=== PATIENT | female | born 2000 ===

== ENCOUNTER 2020-10-17 17:40 | Inpatient (IN) | payer SELFPAY ==
[2020-10-17] MEDS: Lactated Ringers 1,000 ML IV SCH (18:45)
[2020-10-17] MEDS ORDERED: Misoprostol 200 MCG Tab PO PRN (19:02)
[2020-10-17] MEDS ORDERED: Sodium Chloride 0.9% 10 ML SDV IV PRN (19:02)
[2020-10-17] MEDS ORDERED: Tranexamic Acid 1,000 MG in Sodium Chloride 0.9% 100 ML IV PRN (19:02)
[2020-10-17] MEDS ORDERED: Terbutaline 1 MG/ML SDV SUBCUT PRN (19:02)
[2020-10-17] MEDS ORDERED: Ondansetron 4 MG/2 ML SDV IVPUSH PRN (19:02)
[2020-10-17] MEDS ORDERED: Lidocaine 1% 50 ML MDV INJECT PRN (19:02)
[2020-10-17] MEDS ORDERED: Water For Irrigation,Sterile 1,000 ML Container IRR PRN (19:02)
[2020-10-17] MEDS ORDERED: Nalbuphine 10 MG/1 ML Vial IVPUSH PRN (19:02)
[2020-10-17] MEDS ORDERED: Sodium Chloride 0.9% 10 ML Syringe FLUSH PRN (19:02)
[2020-10-17] MEDS ORDERED: Methylergonovine 0.2 MG/1 ML Amp IM PRN (19:02)
[2020-10-17] MEDS ORDERED: Carboprost Tromethamine 250 MCG/1 ML Amp IM PRN (19:02)
[2020-10-17] MEDS ORDERED: Oxytocin/0.9 % Sodium Chloride 30 UNIT/500 ML BAG IV SCH ×2 (19:15)
[2020-10-17] MEDS ORDERED: Ampicillin 2 GM in Sodium Chloride 0.9% 100 ML IV ONE (19:30)
[2020-10-17] MEDS ORDERED: Misoprostol 25 MCG (1/4 of 100 MCG) Tab VAG PRN (20:00)
[2020-10-17] MEDS ORDERED: Ampicillin 1 GM Vial ONE (23:45)
[2020-10-17] MEDS ORDERED: Sodium Chloride 0.9% 50 ML ONE (23:45)
[2020-10-17] MEDS: Ampicillin 1 GM in Sodium Chloride 0.9% 50 ML IV SCH (23:57)
[2020-10-18] MEDS ORDERED: Misoprostol 25 MCG (1/4 of 100 MCG) Tab VAG PRN
[2020-10-18] MEDS: Butorphanol 1 MG/ML SDV IVPUSH PRN ×3 (02:55→05:37)
[2020-10-18] MEDS: Sodium Chloride 0.9% 2.5 ML Syringe FLUSH PRN ×2 (03:02→05:38)
[2020-10-18] MEDS ORDERED: Sodium Chloride 0.9% 50 ML ONE (03:42)
[2020-10-18] MEDS ORDERED: Ampicillin 1 GM Vial ONE (03:42)
[2020-10-18] MEDS: Ampicillin 1 GM in Sodium Chloride 0.9% 50 ML IV SCH ×3 (04:02→12:21)
[2020-10-18] MEDS ORDERED: fentaNYL 100 MCG/2 ML SDV ONE (06:52)
[2020-10-18] MEDS ORDERED: Ropivacaine HCl/PF 100 ML ONE (06:52)
--- NOTE | 2020-10-18 07:14 | PCM.PREANE ---
Preanesthetic Assessment - Anesthesia/Transfusion/Family Hx Anesthesia History: No Prior Anesthesia Family History of Anesthesia Reaction: No - Physical Assessment NPO Status Date: 10/18/20 NPO Status Time: 00:05 Height: 1.68 m Weight: 98.883 kg ASA Class: 2 - Lab Values: Laboratory Last Values WBC 8.75 K/uL (4.0-11.0) 10/17/20 19:30 RBC 3.99 M/uL (4.30-5.90) L 10/17/20 19:30 Hgb 10.5 g/dL (12.0-16.0) L 10/17/20 19:30 Hct 32.6 % (36.0-46.0) L 10/17/20 19:30 MCV 81.7 fL (80.0-98.0) 10/17/20 19:30 MCH 26.3 pg (27.0-32.0) L 10/17/20 19:30 MCHC 32.2 g/dL (31.0-37.0) 10/17/20 19:30 RDW Std Deviation 42.5 fl (28.0-62.0) 10/17/20 19:30 RDW Coeff of Renny 14 % (11.0-15.0) 10/17/20 19:30 Plt Count 288 K/uL (150-400) 10/17/20 19:30 MPV 10.70 fL (7.40-12.00) 10/17/20 19:30 Nucleated RBC % 0.3 /100WBC 10/17/20 19:30 Nucleated RBCs # 0 K/uL 10/17/20 19:30 Blood Type O NEGATIVE 10/17/20 18:35 Antibody Screen NEGATIVE 10/17/20 18:35 - Allergies Allergies/Adverse Reactions: Allergies Allergy/AdvReac Type Severity Reaction Status Date / Time No Known Allergies Allergy Verified 10/17/20 19:27 - Acknowledgements Anesthesia Type Planned: Epidural Pt an Appropriate Candidate for the Planned Anesthesia: Yes Alternatives and Risks of Anesthesia Discussed w Pt/Guardian: Yes Pt/Guardian Understands and Agrees with Anesthesia Plan: Yes PreAnesthesia Questionnaire - HOME MEDS Home Medications: Home Meds Vits #93/Iron Fum/FA [ Formula Tablet] 1 each PO DAILY 10/18/20 [History] - CURRENT (IN HOUSE) MEDS Current Meds: Current Medications Butorphanol Tartrate (Stadol) 1 mg IVPUSH Q1H PRN PRN Reason: Pain Last Admin: 10/18/20 05:37 Dose: 1 mg Documented by: Carboprost Tromethamine (Hemabate Ds) 250 mcg IM ASDIRECTED PRN PRN Reason: Post Hemorrhage Oxytocin/Sodium Chloride (Oxytocin 30 Unit/500 Ml-Ns) 30 unit in 500 mls @ 999 mls/hr IV TITRATE [facility] Tranexamic Acid 1,000 mg/ (Sodium Chloride) 110 mls @ 660 mls/hr IV ONETIME PRN PRN Reason: Bleeding Oxytocin/Sodium Chloride (Oxytocin 30 Unit/500 Ml-Ns) 30 unit in 500 mls @ 2 mls/hr IV TITRATE [facility]; Protocol Last Titration: 10/18/20 05:24 Dose: 4 munits/min, 4 mls/hr Documented by: Lactated Ringer's (Ringers, Lactated) 1,000 mls @ 150 mls/hr IV ASDIRECTED [facility] Last Admin: 10/17/20 18:45 Dose: 150 mls/hr Documented by: Ampicillin Sodium 1 gm/ Sodium (Chloride) 50 mls @ 100 mls/hr IV Q4H [facility] Lidocaine HCl (Xylocaine 1%) 50 ml INJECT ONETIME PRN PRN Reason: Laceration repair Methylergonovine Maleate (Methergine) 0.2 mg IM ASDIRECTED PRN PRN Reason: Post Hemorrhage Misoprostol (Cytotec) 200 mcg PO ONETIME PRN PRN Reason: Post Hemorrhage Misoprostol (Cytotec) 25 mcg VAG ONETIME PRN PRN Reason: Cervical Ripening Last Admin: 10/17/20 20:12 Dose: 25 mcg Documented by: Misoprostol (Cytotec) 25 mcg VAG Q4H PRN PRN Reason: Cervical Ripening Last Admin: 10/18/20 00:00 Dose: 25 mcg Documented by: Nalbuphine HCl (Nubain) 10 mg IVPUSH Q1H PRN PRN Reason: Pain (severe 7-10) Ondansetron HCl (Zofran) 4 mg IVPUSH Q6H PRN PRN Reason: Nausea/Vomiting Sodium Chloride (Saline Flush) 10 ml FLUSH ASDIRECTED PRN PRN Reason: Keep Vein Open Sodium Chloride (Saline Flush) 2.5 ml FLUSH ASDIRECTED PRN PRN Reason: Keep Vein Open Last Admin: 10/18/20 05:38 Dose: 2.5 ml Documented by: Sodium Chloride (Normal Saline) 10 ml IV ASDIRECTED PRN PRN Reason: IV Use Sterile Water (Sterile Water For Irrigation) 1,000 ml IRR ASDIRECTED PRN PRN Reason: delivery Terbutaline Sulfate (Brethine) 0.25 mg SUBCUT ASDIRECTED PRN PRN Reason: Tacysystole Discontinued Medications Ampicillin Sodium (Ampicillin) Confirm Administered Dose 1 gm .ROUTE .STK-MED ONE Stop: 10/17/20 23:46 Last Admin: 10/18/20 05:40 Dose: Not Given Documented by: Ampicillin Sodium (Ampicillin) Confirm Administered Dose 1 gm .ROUTE .STK-MED ONE Stop: 10/18/20 03:43 Last Admin: 10/18/20 05:40 Dose: Not Given Documented by: Fentanyl (Sublimaze) Confirm Administered Dose 100 mcg .ROUTE .STK-MED ONE Stop: 10/18/20 06:53 Ampicillin Sodium 2 gm/ Sodium (Chloride) 100 mls @ 200 mls/hr IV ONETIME ONE Stop: 10/17/20 19:59 Last Admin: 10/17/20 20:00 Dose: 200 mls/hr Documented by: Ampicillin Sodium 1 gm/ Sodium (Chloride) 50 mls @ 100 mls/hr IV Q4H [facility] Last Admin: 10/18/20 04:02 Dose: 100 mls/hr Documented by: Sodium Chloride (Normal Saline) Confirm Administered Dose 50 mls @ as directed .ROUTE .STK-MED ONE Stop: 10/17/20 23:46 Last Admin: 10/18/20 05:40 Dose: Not Given Documented by: Sodium Chloride (Normal Saline) Confirm Administered Dose 50 mls @ as directed .ROUTE .STK-MED ONE Stop: 10/18/20 03:43 Last Admin: 10/18/20 05:40 Dose: Not Given Documented by: Ropivacaine (Naropin 0.2%) Confirm Administered Dose 100 mls @ as directed .ROUTE .STK-MED ONE Stop: 10/18/20 06:53
[2020-10-18] MEDS: Lactated Ringers 1,000 ML IV SCH ×2 (07:15→11:12)
--- NOTE | 2020-10-18 07:17 | PCM.PRNOTE ---
- Free Text/Narrative Note: Anes Note Patient requests epidural for L&D. Sitting position. Level L3-L4 midline appraoch. Sterile technique. Chloraprep scrub to lumbar area. Sterile fenestrated drape applied. Epidural space easily achieved single attempt with ease using АНДРЕЙ technique. АНДРЕЙ at 3 cm. Cath threaded 5 cm with ease. Cath secured at skin using sterile clear adhesive dressing. Test 0655 3 cc 1.5% lido with epi negative. 0657 Load 10 cc 0.2% ropivicaine with 1 mcg cc fetnayl in slow divided doses. 0705 Pumps artsted with 90 cc same solution. Rate is 8 cc hr with 6 cc q 20 min prn bolus. Leonard well. Time with patient [id number] Joel Azar MAIL ORDER SORTER
[2020-10-18] MEDS ORDERED: Sodium Chloride 0.9% 1,000 ML SCH (09:45)
[2020-10-18] MEDS ORDERED: oxyCODONE 5 MG Tab PO PRN (14:58)
[2020-10-18] MEDS ORDERED: Bisacodyl 10 MG Supp RECTAL PRN (14:58)
[2020-10-18] MEDS ORDERED: Benzocaine/Menthol 20%-0.5% Spray 78 GM Cannister TOP PRN (14:58)
[2020-10-18] MEDS ORDERED: Methylergonovine 0.2 MG/1 ML Amp IM PRN (14:58)
[2020-10-18] MEDS ORDERED: Docusate Sodium 100 MG Cap PO PRN (14:58)
[2020-10-18] MEDS ORDERED: Lanolin 100% Cream 7 GM Tube TOP PRN (14:58)
[2020-10-18] MEDS ORDERED: Ibuprofen 800 MG Tab PO PRN (14:58)
[2020-10-18] MEDS ORDERED: Acetaminophen 500 MG Tab PO PRN ×2 (14:58)
[2020-10-18] MEDS ORDERED: Ibuprofen 400 MG Tab PO PRN (14:58)
--- NOTE | 2020-10-18 15:05 | PCM.DEL ---
L & D Note - General Info Date of Service: 10/18/20 Mother's Due Date: 10/12/20 - Delivery Note Labor: Induced by Oxytocin Cervical Ripening Method: Misoprostil Delivery Outcome: Livebirth Infant Delivery Method: Spontaneous Vaginal Delivery-Single Presentation: Left Occiput Anterior (MARY ANN) Nuchal Cord: Present (x1, delivered through) Anesthesia Type: Epidural Amniotic Fluid Description: Clear Episiotomy Type: None Laceration: 2nd Degree, Labial (right) Suture type: Vicryl (2-0), Chromic (3-0) Placenta: Intact, Spontaneous Cord: 3 Vessels Estimated Blood Loss: 200 Resuscitation Needed: No : Bulb Syringe, Stimulated, Warmed Score 1 min: 6 Score 5 min: 8 Delivery Comments (Free Text/Narrative):: Dictation #[id number] - General Info Date of Service: 10/18/20 - Patient Data Weight - Most Recent: 218 lb Lab Results Last 24 Hours: Laboratory Results - last 24 hr 10/17/20 10/17/20 Range/Units 18:35 19:30 WBC 8.75 (4.0-11.0) K/uL RBC 3.99 L (4.30-5.90) M/uL Hgb 10.5 L (12.0-16.0) g/dL Hct 32.6 L (36.0-46.0) % MCV 81.7 (80.0-98.0) fL MCH 26.3 L (27.0-32.0) pg MCHC 32.2 (31.0-37.0) g/dL RDW Std Deviation 42.5 (28.0-62.0) fl RDW Coeff of Renny 14 (11.0-15.0) % Plt Count 288 (150-400) K/uL MPV 10.70 (7.40-12.00) fL Nucleated RBC % 0.3 /100WBC Nucleated RBCs # 0 K/uL Blood Type O NEGATIVE Antibody Screen NEGATIVE Med Orders - Current: Current Medications Butorphanol Tartrate (Stadol) 1 mg IVPUSH Q1H PRN PRN Reason: Pain Last Admin: 10/18/20 05:37 Dose: 1 mg Documented by: Carboprost Tromethamine (Hemabate Ds) 250 mcg IM ASDIRECTED PRN PRN Reason: Post Hemorrhage Oxytocin/Sodium Chloride (Oxytocin 30 Unit/500 Ml-Ns) 30 unit in 500 mls @ 999 mls/hr IV TITRATE [facility] Tranexamic Acid 1,000 mg/ (Sodium Chloride) 110 mls @ 660 mls/hr IV ONETIME PRN PRN Reason: Bleeding Oxytocin/Sodium Chloride (Oxytocin 30 Unit/500 Ml-Ns) 30 unit in 500 mls @ 2 mls/hr IV TITRATE [facility]; Protocol Last Titration: 10/18/20 10:05 Dose: 2 munits/min, 2 mls/hr Documented by: Lactated Ringer's (Ringers, Lactated) 1,000 mls @ 150 mls/hr IV ASDIRECTED [facility] Last Admin: 10/18/20 11:12 Dose: 150 mls/hr Documented by: Ampicillin Sodium 1 gm/ Sodium (Chloride) 50 mls @ 100 mls/hr IV Q4H [facility] Last Admin: 10/18/20 12:21 Dose: 100 mls/hr Documented by: Sodium Chloride (Normal Saline) 1,000 mls @ 600 mls/hr .XX ASDIRECTED [facility] Last Infusion: 10/18/20 10:58 Dose: 180 mls/hr Documented by: Lidocaine HCl (Xylocaine 1%) 50 ml INJECT ONETIME PRN PRN Reason: Laceration repair Methylergonovine Maleate (Methergine) 0.2 mg IM ASDIRECTED PRN PRN Reason: Post Hemorrhage Misoprostol (Cytotec) 200 mcg PO ONETIME PRN PRN Reason: Post Hemorrhage Misoprostol (Cytotec) 25 mcg VAG ONETIME PRN PRN Reason: Cervical Ripening Last Admin: 10/17/20 20:12 Dose: 25 mcg Documented by: Misoprostol (Cytotec) 25 mcg VAG Q4H PRN PRN Reason: Cervical Ripening Last Admin: 10/18/20 00:00 Dose: 25 mcg Documented by: Nalbuphine HCl (Nubain) 10 mg IVPUSH Q1H PRN PRN Reason: Pain (severe 7-10) Ondansetron HCl (Zofran) 4 mg IVPUSH Q6H PRN PRN Reason: Nausea/Vomiting Sodium Chloride (Saline Flush) 10 ml FLUSH ASDIRECTED PRN PRN Reason: Keep Vein Open Sodium Chloride (Saline Flush) 2.5 ml FLUSH ASDIRECTED PRN PRN Reason: Keep Vein Open Last Admin: 10/18/20 05:38 Dose: 2.5 ml Documented by: Sodium Chloride (Normal Saline) 10 ml IV ASDIRECTED PRN PRN Reason: IV Use Sterile Water (Sterile Water For Irrigation) 1,000 ml IRR ASDIRECTED PRN PRN Reason: delivery Terbutaline Sulfate (Brethine) 0.25 mg SUBCUT ASDIRECTED PRN PRN Reason: Tacysystole Discontinued Medications Ampicillin Sodium (Ampicillin) Confirm Administered Dose 1 gm .ROUTE .STK-MED ONE Stop: 10/17/20 23:46 Last Admin: 10/18/20 05:40 Dose: Not Given Documented by: Ampicillin Sodium (Ampicillin) Confirm Administered Dose 1 gm .ROUTE .STK-MED ONE Stop: 10/18/20 03:43 Last Admin: 10/18/20 05:40 Dose: Not Given Documented by: Fentanyl (Sublimaze) Confirm Administered Dose 100 mcg .ROUTE .STK-MED ONE Stop: 10/18/20 06:53 Ampicillin Sodium 2 gm/ Sodium (Chloride) 100 mls @ 200 mls/hr IV ONETIME ONE Stop: 10/17/20 19:59 Last Admin: 10/17/20 20:00 Dose: 200 mls/hr Documented by: Ampicillin Sodium 1 gm/ Sodium (Chloride) 50 mls @ 100 mls/hr IV Q4H [facility] Last Admin: 10/18/20 04:02 Dose: 100 mls/hr Documented by: Sodium Chloride (Normal Saline) Confirm Administered Dose 50 mls @ as directed .ROUTE .STK-MED ONE Stop: 10/17/20 23:46 Last Admin: 10/18/20 05:40 Dose: Not Given Documented by: Sodium Chloride (Normal Saline) Confirm Administered Dose 50 mls @ as directed .ROUTE .STK-MED ONE Stop: 10/18/20 03:43 Last Admin: 10/18/20 05:40 Dose: Not Given Documented by: Ropivacaine (Naropin 0.2%) Confirm Administered Dose 100 mls @ as directed .ROUTE .STK-MED ONE Stop: 10/18/20 06:53 - Problem List Review Problem List Initiated/Reviewed/Updated: Yes - My Orders Last 24 Hours: My Active Orders 10/17/20 19:02 Peripheral IV Care [RC] PRN Butorphanol [Stadol] 1 mg IVPUSH Q1H PRN Carboprost Tromethamine [Hemabate DS] 250 mcg IM ASDIRECTED PRN Lidocaine 1% [Xylocaine 1%] 50 ml INJECT ONETIME PRN Methylergonovine [Methergine] 0.2 mg IM ASDIRECTED PRN Nalbuphine [Nubain] 10 mg IVPUSH Q1H PRN Ondansetron [Zofran] 4 mg IVPUSH Q6H PRN Sodium Chloride 0.9% [Normal Saline] 10 ml IV ASDIRECTED PRN Sodium Chloride 0.9% [Saline Flush] 10 ml FLUSH ASDIRECTED PRN Sodium Chloride 0.9% [Saline Flush] 2.5 ml FLUSH ASDIRECTED PRN Terbutaline [Brethine] 0.25 mg SUBCUT ASDIRECTED PRN Tranexamic Acid [Cyklokapron] 1,000 mg Sodium Chloride 0.9% [Normal Saline] 100 ml IV ONETIME Water For Irrigation,Sterile [Sterile Water for Irrigation] 1,000 ml IRR ASDIRECTED PRN miSOPROStoL [Cytotec] 200 mcg PO ONETIME PRN Resuscitation Status Routine 10/17/20 19:03 Patient Status [ADT] Routine Bedrest Bathroom Privileges [RC] ASDIRECTED Communication Order [RC] ASDIRECTED Communication Order [RC] ASDIRECTED Communication Order [RC] ASDIRECTED Heart Tones [RC] CONTINUOUS Non Stress Test [RC] PER UNIT ROUTINE May Shower [RC] ASDIRECTED Notify Provider [RC] PRN Notify Provider [RC] PRN Notify Provider [RC] PRN Notify Provider [RC] STAT Oxygen Therapy [RC] ASDIRECTED Up ad Lexie [RC] ASDIRECTED Vaginal Exam [RC] PRN Vaginal Exam [RC] PRN Vital Signs [RC] PER UNIT ROUTINE Vital Signs [RC] PER UNIT ROUTINE Scalp Electrode [WOMSER] Per Unit Routine Peripheral IV Insertion Adult [OM.PC] Routine 10/17/20 19:15 Lactated Ringers [Ringers, Lactated] 1,000 ml IV ASDIRECTED Oxytocin/0.9 % Sodium Chloride [Oxytocin 30 Unit/500 ML-NS] 30 unit in 500 ml IV TITRATE Oxytocin/0.9 % Sodium Chloride [Oxytocin 30 Unit/500 ML-NS] 30 unit in 500 ml IV TITRATE Medication Administration Instruction [OM.PC] Q3H 10/17/20 19:30 RPR (SYPHILIS SERO) W/ RFLX [REF] Routine 10/17/20 20:00 miSOPROStoL [Cytotec] 25 mcg VAG ONETIME PRN 10/18/20 00:00 miSOPROStoL [Cytotec] 25 mcg VAG Q4H PRN 10/18/20 08:00 Ampicillin 1 gm Sodium Chloride 0.9% [Normal Saline] 50 ml IV Q4H 10/18/20 09:45 Sodium Chloride 0.9% [Normal Saline] 1,000 ml .XX ASDIRECTED 10/18/20 14:58 Patient Status [ADT] Routine May Shower [RC] ASDIRECTED Up ad Lexie [RC] ASDIRECTED Vital Signs [RC] PER UNIT ROUTINE Acetaminophen [Tylenol Extra Strength] 1,000 mg PO Q4H PRN Acetaminophen [Tylenol Extra Strength] 500 mg PO Q4H PRN Benzocaine/Menthol [Dermoplast Pain Relief 20%-0.5% [place]] 78 gm TOP ASDIRECTED PRN Docusate Sodium [Colace] 100 mg PO BID PRN Ibuprofen [Motrin] 400 mg PO Q4H PRN Ibuprofen [Motrin] 800 mg PO Q6H PRN Lanolin [Lansinoh HPA] See Dose Instructions TOP ASDIRECTED PRN Methylergonovine [Methergine] 0.2 mg IM ONETIME PRN bisacodyL [Dulcolax] 10 mg RECTAL ONETIME PRN oxyCODONE 5 mg PO Q2H PRN witch [place] [Tucks] 1 pad TOP ASDIRECTED PRN Assess Lochia [WOMSER] Per Unit Routine Assess Uterine Involution [WOMSER] Per Unit Routine Peripheral IV Discontinue [OM.PC] Routine 10/19/20 05:11 HEMOGLOBIN/HEMATOCRIT,HH [HEME] Timed - Assessment Assessment:: 20 year old G1 now P1 s/p spontaneous vaginal delivery at 40w6d - Plan Plan:: Routine care * Rh negative, studies pending/rubella immune/GBS positive s/p IV Ampicillin during induction of labor * PO pain medication ordered PRN * Diet as tolerated * Encourage ambulation and fluid intake when able * , nursing assistance as needed * Contraception: desires progesterone only OCP Dispo: stable. Anticipate routine course.
--- NOTE | 2020-10-18 15:50 | PCM48HPAN ---
Post Anesthesia Note - EVALUATION WITHIN 48HRS OF ANESTHETIC Vital Signs in Normal Range: Yes Patient Participated in Evaluation: Yes Respiratory Function Stable: Yes Airway Patent: Yes Cardiovascular Function Stable: Yes Hydration Status Stable: Yes Pain Control Satisfactory: Yes Nausea and Vomiting Control Satisfactory: Yes Mental Status Recovered: Yes - COMMENTS/OBSERVATIONS Free Text/Narrative:: Sitting up . Denies any complaints at this time.
[2020-10-18] MEDS: Witch Hazel Medicated Pads 40/Jar TOP PRN (16:36)
--- NOTE | 2020-10-18 20:23 | OR ---
SURGEON: SHERRY TRUJILLO MD DATE OF PROCEDURE: 10/18/2020 PREOPERATIVE DIAGNOSES: 1. Term intrauterine at 40 weeks and 6 days gestation. 2. Maternal obesity. 3. Post-term . POSTOPERATIVE DIAGNOSES: 1. Term intrauterine at 40 weeks and 6 days gestation. 2. Maternal obesity. 3. Post-term . PROCEDURE: Spontaneous vaginal delivery. PRIMARY SURGEON: Sherry Trujillo MD ANESTHESIA: Epidural. COMPLICATIONS: None. ESTIMATED BLOOD LOSS: 200 mL. INDICATIONS: A 20-year-old 1 at 40 weeks and 6 days gestation with maternal obesity complicating . FINDINGS: Normal-appearing female in cephalic presentation. Clear amniotic fluid. scores 6 and 8. Weight 2810 g. Second-degree perineal laceration and right labial laceration. PROCEDURE IN DETAIL: The patient presented to Labor and Delivery on the evening of 10/17/2020 for induction of labor due to maternal obesity and post-term . Overnight, she received 2 doses of Cytotec vaginally and an epidural for pain management. Pitocin was started on the morning of 10/18/2020 and labor progressed. At approximately 9:00 a.m. variable decelerations were noted. Spontaneous rupture of membranes had occurred with clear fluid at 2:00 a.m. At 9:00 am, cervical exam was performed, and the patient was noted to be 6 cm dilated. Pitocin was decreased from 6 units to 4 units and maternal position changes were performed. However, variable decelerations were still noted despite interventions. An intrauterine pressure catheter was then placed and amnioinfusion was started. The Pitocin was discontinued at that time. heart tones returned to reassuring after these measures. Labor progressed, and at approximately 1300, the patient began pushing efforts. I was called for delivery at approximately 1415, and arrived to the patient's room where she continued pushing efforts and delivered a viable female at 1433. After the was delivered, handed off to awaiting nursing staff and to mother. After approximately 60 seconds, the umbilical cord was clamped and cut. Arterial, venous, and cord blood gases were then obtained, and the placenta was then delivered intact. A second-degree perineal laceration was noted and repaired with 2-0 Vicryl in the usual fashion, and a small right labial laceration was also noted and repaired with [id number] suture of 3-0 chromic. The patient tolerated the procedure well. EBL was 200 mL. The patient and are recovering in labor room at this time. BRO CAPPS /[id number]
--- NOTE | 2020-10-19 07:21 | PCM.PNPP ---
- General Info Date of Service: 10/19/20 Admission Dx/Problem (Free Text): induction of labor Subjective Update: Resting comfortably in bed during rounds. Pain well controlled. Lochia decreasing. Ambulating and voiding without difficulty. Tolerating regular diet. , going well per patient. Denies lightheadedness/dizziness or headaches. - General Info Date of Service: 10/19/20 - Patient Data Vital Signs - Most Recent: Last Vital Signs Temp 97.7 F 10/19/20 05:00 Pulse 68 10/19/20 05:00 Resp 16 10/19/20 05:00 BP 94/50 L 10/19/20 06:20 Pulse Ox 98 10/19/20 05:00 Weight - Most Recent: 218 lb I&O - Last 24 Hours: Intake & Output 10/18/20 10/19/20 10/19/20 22:59 06:59 14:59 Intake Total 1617 Balance 1617 Lab Results - Last 24 Hours: Laboratory Results - last 24 hr 10/19/20 Range/Units 05:45 Hgb 9.1 L (12.0-16.0) g/dL Hct 28.7 L (36.0-46.0) % Med Orders - Current: Current Medications Acetaminophen (Tylenol Extra Strength) 500 mg PO Q4H PRN PRN Reason: Pain Acetaminophen (Tylenol Extra Strength) 1,000 mg PO Q4H PRN PRN Reason: Pain Last Admin: 10/18/20 18:20 Dose: 1,000 mg Documented by: Benzocaine/Menthol (Dermoplast Pain Relief 20%-0.5% [place]) 78 gm TOP ASDIRECTED PRN PRN Reason: Perineal Comfort Measure Last Admin: 10/18/20 16:37 Dose: 1 bottle Documented by: Bisacodyl (Dulcolax) 10 mg RECTAL ONETIME PRN PRN Reason: Constipation Butorphanol Tartrate (Stadol) 1 mg IVPUSH Q1H PRN PRN Reason: Pain Last Admin: 10/18/20 05:37 Dose: 1 mg Documented by: Carboprost Tromethamine (Hemabate Ds) 250 mcg IM ASDIRECTED PRN PRN Reason: Post Hemorrhage Docusate Sodium (Colace) 100 mg PO BID PRN PRN Reason: Constipation Emollient Ointment (Lansinoh Hpa) 0 gm TOP ASDIRECTED PRN PRN Reason: Sore Nipples Last Admin: 10/18/20 16:36 Dose: 1 applic Documented by: Oxytocin/Sodium Chloride (Oxytocin 30 Unit/500 Ml-Ns) 30 unit in 500 mls @ 999 mls/hr IV TITRATE [facility] Tranexamic Acid 1,000 mg/ (Sodium Chloride) 110 mls @ 660 mls/hr IV ONETIME PRN PRN Reason: Bleeding Oxytocin/Sodium Chloride (Oxytocin 30 Unit/500 Ml-Ns) 30 unit in 500 mls @ 2 mls/hr IV TITRATE [facility]; Protocol Last Titration: 10/18/20 15:10 Dose: 0 munits/min, 0 mls/hr Documented by: Lactated Ringer's (Ringers, Lactated) 1,000 mls @ 150 mls/hr IV ASDIRECTED [place] Last Admin: 10/18/20 11:12 Dose: 150 mls/hr Documented by: Ampicillin Sodium 1 gm/ Sodium (Chloride) 50 mls @ 100 mls/hr IV Q4H [place] Last Admin: 10/18/20 12:21 Dose: 100 mls/hr Documented by: Sodium Chloride (Normal Saline) 1,000 mls @ 600 mls/hr .XX ASDIRECTED [facility] Last Infusion: 10/18/20 10:58 Dose: 180 mls/hr Documented by: Ibuprofen (Motrin) 800 mg PO Q6H PRN PRN Reason: Pain Ibuprofen (Motrin) 400 mg PO Q4H PRN PRN Reason: Pain Lidocaine HCl (Xylocaine 1%) 50 ml INJECT ONETIME PRN PRN Reason: Laceration repair Methylergonovine Maleate (Methergine) 0.2 mg IM ONETIME PRN PRN Reason: Excessive Vaginal Bleeding Methylergonovine Maleate (Methergine) 0.2 mg IM ASDIRECTED PRN PRN Reason: Post Hemorrhage Misoprostol (Cytotec) 200 mcg PO ONETIME PRN PRN Reason: Post Hemorrhage Misoprostol (Cytotec) 25 mcg VAG ONETIME PRN PRN Reason: Cervical Ripening Last Admin: 10/17/20 20:12 Dose: 25 mcg Documented by: Misoprostol (Cytotec) 25 mcg VAG Q4H PRN PRN Reason: Cervical Ripening Last Admin: 10/18/20 00:00 Dose: 25 mcg Documented by: Nalbuphine HCl (Nubain) 10 mg IVPUSH Q1H PRN PRN Reason: Pain (severe 7-10) Ondansetron HCl (Zofran) 4 mg IVPUSH Q6H PRN PRN Reason: Nausea/Vomiting Oxycodone HCl (Oxycodone) 5 mg PO Q2H PRN PRN Reason: Pain Sodium Chloride (Saline Flush) 10 ml FLUSH ASDIRECTED PRN PRN Reason: Keep Vein Open Sodium Chloride (Saline Flush) 2.5 ml FLUSH ASDIRECTED PRN PRN Reason: Keep Vein Open Last Admin: 10/18/20 05:38 Dose: 2.5 ml Documented by: Sodium Chloride (Normal Saline) 10 ml IV ASDIRECTED PRN PRN Reason: IV Use Sterile Water (Sterile Water For Irrigation) 1,000 ml IRR ASDIRECTED PRN PRN Reason: delivery Terbutaline Sulfate (Brethine) 0.25 mg SUBCUT ASDIRECTED PRN PRN Reason: Tacysystole Witch Pablito (Tucks) 1 pad TOP ASDIRECTED PRN PRN Reason: comfort care Last Admin: 10/18/20 16:36 Dose: 1 applic Documented by: Discontinued Medications Ampicillin Sodium (Ampicillin) Confirm Administered Dose 1 gm .ROUTE .STK-MED ONE Stop: 10/17/20 23:46 Last Admin: 10/18/20 05:40 Dose: Not Given Documented by: Ampicillin Sodium (Ampicillin) Confirm Administered Dose 1 gm .ROUTE .STK-MED ONE Stop: 10/18/20 03:43 Last Admin: 10/18/20 05:40 Dose: Not Given Documented by: Fentanyl (Sublimaze) Confirm Administered Dose 100 mcg .ROUTE .STK-MED ONE Stop: 10/18/20 06:53 Last Admin: 10/19/20 01:44 Dose: Not Given Documented by: Ampicillin Sodium 2 gm/ Sodium (Chloride) 100 mls @ 200 mls/hr IV ONETIME ONE Stop: 10/17/20 19:59 Last Admin: 10/17/20 20:00 Dose: 200 mls/hr Documented by: Ampicillin Sodium 1 gm/ Sodium (Chloride) 50 mls @ 100 mls/hr IV Q4H [place] Last Admin: 10/18/20 04:02 Dose: 100 mls/hr Documented by: Sodium Chloride (Normal Saline) Confirm Administered Dose 50 mls @ as directed .ROUTE .STK-MED ONE Stop: 10/17/20 23:46 Last Admin: 10/18/20 05:40 Dose: Not Given Documented by: Sodium Chloride (Normal Saline) Confirm Administered Dose 50 mls @ as directed .ROUTE .STK-MED ONE Stop: 10/18/20 03:43 Last Admin: 10/18/20 05:40 Dose: Not Given Documented by: Ropivacaine (Naropin 0.2%) Confirm Administered Dose 100 mls @ as directed .ROUTE .STK-MED ONE Stop: 10/18/20 06:53 Last Admin: 10/19/20 01:44 Dose: Not Given Documented by: - Infant Interaction Disposition, : [place] at Bedside Infant Feeding: Breastfed Infant; Nursed Well Support Person: Sister - Recovery Exam Fundal Tone: Firm Fundal Level: 2 Fingerbreadths Below Umbilicus Fundal Placement: Midline Lochia Amount: Scant Lochia Color: Rubra/Red Perineum Description: Intact, Minimal Bruising/Swelling, Other (see below) Other Perinuem Description: 2nd degree laceration Episiotomy/Laceration: Approximated Bladder Status: Voiding Urinary Elimination: Voided - Exam General: Alert Lungs: Normal Respiratory Effort Cardiovascular: Regular Rate GI/Abdominal Exam: Normal Bowel Sounds, Soft, Non-Tender Extremities: Normal Inspection, Normal Range of Motion, Non-Tender, Pedal Edema (trace) Skin: Warm, Dry, Intact Wound/Incisions: Healing Well Neurological: No New Focal Deficit Psy/Mental Status: Normal Mood - Problem List Review Problem List Initiated/Reviewed/Updated: Yes - My Orders Last 24 Hours: My Active Orders 10/18/20 08:00 Ampicillin 1 gm Sodium Chloride 0.9% [Normal Saline] 50 ml IV Q4H 10/18/20 09:45 Sodium Chloride 0.9% [Normal Saline] 1,000 ml .XX ASDIRECTED 10/18/20 14:58 Patient Status [ADT] Routine Vital Signs [RC] PER UNIT ROUTINE Acetaminophen [Tylenol Extra Strength] 1,000 mg PO Q4H PRN Acetaminophen [Tylenol Extra Strength] 500 mg PO Q4H PRN Benzocaine/Menthol [Dermoplast Pain Relief 20%-0.5% [place]] 78 gm TOP ASDIRECTED PRN Docusate Sodium [Colace] 100 mg PO BID PRN Ibuprofen [Motrin] 400 mg PO Q4H PRN Ibuprofen [Motrin] 800 mg PO Q6H PRN Lanolin [Lansinoh HPA] See Dose Instructions TOP ASDIRECTED PRN Methylergonovine [Methergine] 0.2 mg IM ONETIME PRN bisacodyL [Dulcolax] 10 mg RECTAL ONETIME PRN oxyCODONE 5 mg PO Q2H PRN witch Pablito [Tucks] 1 pad TOP ASDIRECTED PRN Assess Lochia [WOMSER] Per Unit Routine Assess Uterine Involution [WOMSER] Per Unit Routine Peripheral IV Discontinue [OM.PC] Routine 10/19/20 07:21 Ready for Discharge [RC] PER UNIT ROUTINE - Assessment Assessment:: 20 year old G1 now P1 PPD #1 s/p spontaneous vaginal delivery at 40w6d - Plan Plan:: Routine care * Rh negative, studies pending/rubella immune/GBS positive s/p IV Ampicillin during induction of labor * PO pain medication ordered PRN * Diet as tolerated * Encourage ambulation and fluid intake when able * , nursing assistance as needed * Contraception: desires progesterone only OCP . Rx sent to pharmacy. Anemia * Hgb 10.2 > 9.1 * PO iron ordered for BID with meals * Reviewed precautions/symptoms with patient and Rx sent to pharmacy Dispo: stable. Anticipate discharge today pending maternal/ status. Reviewed discharge instructions including to notify clinic with temperature >100.4, intractable nausea/vomiting, pain not controlled with Tylenol or Ibuprofen or heavy vaginal bleeding. Advised nothing per vagina for 6 weeks.
[2020-10-19] MEDS: Ferrous Sulfate 325 MG Tab PO SCH ×2 (08:32→16:10)
[2020-10-19] MEDS: Witch Hazel Medicated Pads 40/Jar TOP PRN (16:10)
== END 2020-10-19 16:20 | disposition home or self-care (01) | DRG 807 ==
LOC: MW.OB 17:40 → INTOOBSV 19:03 → OBSVTOIN 19:03 → MW.OB 10-18 17:39 → OBSVTOIN 10-18 17:40
PROVIDERS: ADMIT Obstetrics & Gynecology; ATTEND Obstetrics & Gynecology
PROC: 10E0XZZ Delivery of Products of Conception, External Approach (ICD-10-PCS; principal; 2020-10-18)
PROC: 0KQM0ZZ Repair Perineum Muscle, Open Approach (ICD-10-PCS; 2020-10-18)
PROC: 3E0R3BZ Introduction of Anesthetic Agent into Spinal Canal, Percutaneous Approach (ICD-10-PCS; 2020-10-18)
PROC: 00HU33Z Insertion of Infusion Device into Spinal Canal, Percutaneous Approach (ICD-10-PCS; 2020-10-18)
DX: O48.0 Post-term pregnancy (principal); Z37.0 Single live birth; Z3A.40 40 weeks gestation of pregnancy; O69.81X0 Labor and delivery complicated by cord around neck, without compression, not applicable or unspecified; O99.214 Obesity complicating childbirth; E66.9 Obesity, unspecified; O99.824 Streptococcus B carrier state complicating childbirth; O70.1 Second degree perineal laceration during delivery
CPT/HCPCS: 36415; 51702; 59025; 59409; 85014; 85018; 85027; 86592; 86850; 86900; 86901; A9270-GY; J0290; J0595; J2590; J2795; J3010; J7030; J7120